=== PATIENT | male | born 1940 | race African-American/Black ===

== ENCOUNTER 2016-08-11 21:00 | Inpatient (IN) | payer OTHER, MEDICARE ==
[~2016-08-11] VITALS: Ht 182.9 cm; Wt 72.6 kg
[2016-08-11 21:00] VITALS: BP 142/86
--- NOTE | 2016-08-11 21:26 | Emergency Room Report ---
History of Present Illness General Chief Complaint: Dyspnea/Respdistress Source: Patient, EMS Present Illness HPI The patient presents with severe dyspnea. Apparently his initial oxygen saturation was 74% in the field. He was diaphoretic at that time also. They placed him on 100% nonrebreather mask and his O2 sats geovanny gradually to 100%. Paramedics said his lung sounds were clear. The patient states he's had worsening dyspnea over the last several days. Also has edema of his lower extremities is been fluctuating. He states that edema initially started after he had some operative procedure. He's not sure what the procedure was. He's had chills. Also when he coughs there is a little bit of blood which is old looking. No green or yellow phlegm. He denies h/o CHF. With family members who she claims that he has blood clots and had operations for that. He is on Xarelto at this time. Allergies: Coded Allergies: PENICILLINS (Unverified Allergy, Unknown, 08/12/16) Uncoded Allergies: PENICILLIN (Allergy, Unknown, 08/11/16) Patient History Past Medical History: see triage record Social History: Reports: smoking - prior Social History Narrative at home Reviewed Nursing Documentation: PMH: Agreed, PSxH: Agreed Nursing Documentation-PMH Past Medical History: No Stated History Review of Systems All Other Systems: negative except mentioned in HPI Physical Exam Vital Signs Date Time Temp Pulse Resp B/P Pulse Ox O2 Delivery O2 Flow Rate FiO2 08/11/16 20:50 110 20 142/86 95 Non-Rebreather 15.0 Sp02 EP Interpretation: reviewed, abnormal - low as interpreted by me on oxygen General Appearance: well appearing, no apparent distress, GCS 15, Chronically Ill Head: normocephalic Eyes: bilateral eye PERRL, bilateral eye conjunctivae pale, bilateral eye normal inspection ENT: moist mucus membranes Neck: supple Respiratory: no respiratory distress, no retraction, decreased breath sounds, rales - L base Cardiovascular #1: tachycardia, edema - bilat Cardiovascular #2: 2+ radial (R) Gastrointestinal: normal inspection, normal bowel sounds, non tender, no mass, non-distended Musculoskeletal: back normal, normal range of motion, no calf tenderness, other - clubbing Neurologic: alert, oriented x3, grossly normal Psychiatric: mood/affect normal Skin: normal inspection, warm/dry, other - clubbing Medical Decision Making Diagnostic Impression: Primary Impression: RLL pneumonia Qualified Codes: J18.1 - Lobar pneumonia, unspecified organism Additional Impression: UTI (urinary tract infection) Qualified Codes: N30.00 - Acute cystitis without hematuria ER Course The patient presents with hypoxia, tachycardia and peripheral edema. He's also had chills and mildly productive phlegm with some blood. Differential includes pneumonia, PE, acute myocardial infarction, bronchitis, and does have heart failure amongst others. Evaluation will be undertaken with labs, EKG and chest x-ray. With profound hypoxia there is concern for pulmonary embolus however the patient is on Xarelto and states he's been taking this. The patient has a low- grade fever and therefore pneumonia is more likely. Because of this fever and the lung findings antibiotics are begun. Addition to that IV fluid boluses instituted. Labs are significant for normal white count and elevated lactate. In addition the patient's chest x-ray has a right lower lobe infiltrate. Patient is admitted to telemetry to Dr. Olson. Laboratory Tests Test 08/11/16 21:10 08/12/16 00:40 White Blood Count 8.0 K/UL (4.8-10.8) Red Blood Count 4.21 M/UL (4.70-6.10) L Hemoglobin 12.6 G/DL (14.2-18.0) L Hematocrit 38.8 % (42.0-52.0) L Mean Corpuscular Volume 92 FL (80-99) Mean Corpuscular Hemoglobin 29.9 PG (27.0-31.0) Mean Corpuscular Hemoglobin Concent 32.4 G/DL (32.0-36.0) Red Cell Distribution Width 14.5 % (11.6-14.8) Platelet Count 145 K/UL (150-450) L Mean Platelet Volume 6.6 FL (6.5-10.1) Neutrophils (%) (Auto) % (45.0-75.0) Lymphocytes (%) (Auto) % (20.0-45.0) Monocytes (%) (Auto) % (1.0-10.0) Eosinophils (%) (Auto) % (0.0-3.0) Basophils (%) (Auto) % (0.0-2.0) Differential Total Cells Counted 100 Neutrophils % (Manual) 80 % (45-75) H Lymphocytes % (Manual) 5 % (20-45) L Monocytes % (Manual) 4 % (1-10) Eosinophils % (Manual) 0 % (0-3) Basophils % (Manual) 0 % (0-2) Band Neutrophils 11 % (0-8) H Platelet Estimate Adequate Platelet Morphology Normal Red Blood Cell Morphology Normal Prothrombin Time 12.2 SEC (9.30-11.50) H Prothrombin Time INR 1.2 (0.9-1.1) H PTT 35 SEC (23-33) H Urine Color Yellow Urine Appearance Slightly cloudy Urine pH 5 (4.5-8.0) Urine Specific [place] 1.025 (1.005-1.035) Urine Protein 3+ (NEGATIVE) H Urine Glucose (UA) Negative (NEGATIVE) Urine Ketones 2+ (NEGATIVE) H Urine Occult Blood 4+ (NEGATIVE) H Urine Nitrite Positive (NEGATIVE) H Urine Bilirubin Negative (NEGATIVE) Urine Urobilinogen Normal MG/DL (0.0-1.0) Urine Leukocyte Esterase 1+ (NEGATIVE) H Urine RBC 5-10 /HPF (0 - 0) H Urine WBC 15-20 /HPF (0 - 0) H Urine Squamous Epithelial Cells None /LPF (NONE/OCC) Urine Bacteria Moderate /HPF (NONE) H Sodium Level 138 mEQ/L (135-145) Potassium Level 3.9 mEQ/L (3.4-4.9) Chloride Level 97 mEQ/L (98-107) L Carbon Dioxide Level 20 mEQ/L (20-30) Anion Gap 21 (5-15) H Blood Urea Nitrogen 15 mg/dL (7-23) Creatinine 1.1 mg/dL (0.7-1.2) Estimate Glomerular Filtration Rate mL/min (>60) Glucose Level 148 mg/dL (74-106) H Lactic Acid Level 3.10 mmol/L (0.66-2.22) H Pending Calcium Level 8.4 mg/dL (8.6-10.2) L Total Bilirubin 0.9 mg/dL (0.0-1.2) Aspartate Amino Transferase (AST) 31 U/L (5-40) Alanine Aminotransferase (ALT) 19 U/L (3-41) Alkaline Phosphatase 93 U/L (40-129) Total Creatine Kinase 167 U/L (38-174) Troponin I < 0.30 ng/mL (<=0.30) Pro-B-Type Natriuretic Peptide 2004 pg/mL (0-125) H Total Protein 7.0 g/dL (6.6-8.7) Albumin 3.8 g/dL (3.5-5.2) Globulin 3.2 g/dL Albumin/Globulin Ratio 1.1 (1.0-2.7) EKG Diagnostic Results Rate: tachycardiac ST Segments: no acute changes Rhythm Strip Diag. Results EP Interpretation: yes Rhythm: other - ST 124, occ PVCs, NSSTTW changes Chest X-Ray Diagnostic Results EP Interpretation: Yes Findings: no effusion, no pneumothorax, other - RLL infiltrate Number of Views: 1 Last Vital Signs Date Time Temp Pulse Resp B/P Pulse Ox O2 Delivery O2 Flow Rate FiO2 08/13/16 11:52 98.1 76 18 151/99 98 Nasal Cannula 2.0 08/13/16 07:46 28 Status: improved Disposition: ADMITTED INPATIENT Condition: Serious Guille Dowd M.D. Aug 11, 2016 21:26
[2016-08-11] MEDS ORDERED: cefTRIAXone 1 GM in NS 55 ML IVPB ONE (21:30)
[2016-08-11] MEDS ORDERED: NS 1000ml 2,200 ML IVLG ONE (21:30)
[2016-08-11] MEDS ORDERED: Azithromycin 500 MG in D5W 275 ML IVPB ONE (21:30)
[2016-08-11 21:35] LABS: KETONES,URINE 2+ (NEGATIVE); LEUKOCYTE ESTERASE ,URINE 1+ (NEGATIVE); NITRITE,URINE POSITIVE (NEGATIVE); PH,URINE 5 (4.5-8.0); PROTEIN,URINE 3+ (NEGATIVE); UROBILINOGEN,URINE NORMAL MG/DL (0.0-1.0)
[2016-08-11 21:36] LABS: APPEARANCE,URINE SLIGHTLY CLOUDY
[2016-08-11 21:40] LABS: RED BLOOD COUNT 4.21 M/UL (4.70-6.10)
[2016-08-11 21:41] LABS: MEAN CORPUSCULAR HEMOGLOBIN 29.9 PG (27.0-31.0); MEAN CORPUSCULAR HGB CONC 32.4 G/DL (32.0-36.0); MEAN CORPUSCULAR VOLUME 92 FL (80-99); MEAN PLATELET VOLUME 6.6 FL (6.5-10.1); PLATELET COUNT 145 K/UL (150-450); RED CELL DISTRIBUTION WIDTH 14.5 % (11.6-14.8)
[2016-08-11 21:43] LABS: BACTERIA,URINE MODERATE /HPF; WBC,URINE 15-20 /HPF (0 - 0)
[2016-08-11 22:01] LABS: INR 1.2 (0.9-1.1); PROTHROMBIN TIME 12.2 SEC (9.30-11.50)
[2016-08-11 22:02] LABS: TROPONIN I < 0.30 ng/mL (<=0.30)
[2016-08-11 22:05] LABS: ALANINE AMINOTRANSFERASE 19 U/L (3-41); ALBUMIN/GLOBULIN RATIO 1.1 (1.0-2.7); ASPARTATE AMINO TRANSFERASE 31 U/L (5-40); CALCIUM 8.4 mg/dL (8.6-10.2); CARBON DIOXIDE 20 mEQ/L (20-30); CREATININE 1.1 mg/dL (0.7-1.2); HEMOLYSIS 32
[2016-08-11 22:06] LABS: ANION GAP 21 (5-15); CHLORIDE 97 mEQ/L (98-107); POTASSIUM 3.9 mEQ/L (3.4-4.9); SODIUM 138 mEQ/L (135-145)
[2016-08-11 22:07] LABS: REFLEX LACTIC ACID YES OR NO YES
[2016-08-11] MEDS ORDERED: XARELTO10 MG ORAL (22:17)
[2016-08-11] MEDS ORDERED: Azithromycin Inj IV ONE (22:25)
[2016-08-11 22:30] LABS: BAND NEUTROPHILS % (MANUAL) 11 % (0-8); BASOPHILS % (MANUAL) 0 % (0-2); EOSINOPHILS % (MANUAL) 0 % (0-3); LYMPHOCYTES % (MANUAL) 5 % (20-45); NEUTROPHILS % (MANUAL) 80 % (45-75); PLATELET ESTIMATE ADEQUATE; PLATELET MORPHOLOGY NORMAL; TOTAL CELLS COUNTED 100
[2016-08-11 23:00] VITALS: BP 121/86
[2016-08-12 01:00] VITALS: BP 109/79
[2016-08-12] MEDS ORDERED: DuoNeb 0.5-3(2.5)mg/3ml neb HHN PRN (03:00)
[2016-08-12 03:16] VITALS: BP 108/74
[2016-08-12 05:16] VITALS: BP 131/82
[2016-08-12 06:06] LABS: ALANINE AMINOTRANSFERASE 36 U/L (3-41); ANION GAP 17 (5-15); ASPARTATE AMINO TRANSFERASE 64 U/L (5-40); CARBON DIOXIDE 22 mEQ/L (20-30); CHLORIDE 99 mEQ/L (98-107); CHOLESTEROL 117 mg/dL (< 200); CHOLESTEROL/HDL RATIO 2.4 (3.3-4.4); CREATININE 0.9 mg/dL (0.7-1.2); HEMOLYSIS 26; LDL CHOLESTEROL (CALC.) 57 mg/dL (60-99); POTASSIUM 4.2 mEQ/L (3.4-4.9); SODIUM 138 mEQ/L (135-145); TOTAL PROTEIN 6.5 g/dL (6.6-8.7)
[2016-08-12 08:00] VITALS: BP 138/78
[2016-08-12] MEDS ORDERED: cefTRIAXone 1 GM in NS 55 ML IVPB SCH (09:00)
--- NOTE | 2016-08-12 09:05 | Consultation ---
History of Present Illness General Date patient seen: Aug 12, 2016 Time patient seen: 08:00 Chief Complaint: Dyspnea/Respdistress Referring physician: dr Olson Reason for Consultation: PNA Present Illness HPI The patient presented with severe dyspnea. Initial oxygen saturation was 74% in the field. He was diaphoretic at that time as well. Patient was placed on 100% nonrebreather mask and pulse oximetry gradually improved to 100%. Patient reported worsening dyspnea over the last several days. Reported fever and chills reported cough, mainly dry, difficult to expectorate, no hemoptysis, no wheezing , With difficultites expectoration, streaks of blood last week, not now no weight loss, no night sweats, no hx of TB hx of smoking 1 pk/day, quit 10 yrs ago has inhalers ay home, not using no oxygen at home hx of DVT RLE, on Xarelto, had surgeries for clot in his leg, not sure what kind of surgery reported edema of his lower extremities, fluctuating. Edema initially started after he had some operative procedure. He's not sure what the procedure was. workup in ED revealed no leukocytosis, low grade fever initially , elevated lactic acid , tachycardia UA with evidence of UTI CXR with Right basilar interstitial disease: acute vs chronic. ECG with ST, no ischemic changes Allergies: Coded Allergies: PENICILLINS (Unverified Allergy, Unknown, 08/12/16) Uncoded Allergies: PENICILLIN (Allergy, Unknown, 08/11/16) Medication History Scheduled Rivaroxaban (Xarelto*), 15 ORAL BID, (Reported) Patient History History Provided By: Patient Healthcare decision maker Resuscitation status Advanced Directive on File Past Medical/Surgical History Past Medical/Surgical History: (1) COPD (chronic obstructive pulmonary disease) Review of Systems Constitutional: Reports: fever, weakness Eye: Reports: no symptoms ENT: Reports: no symptoms Respiratory: Reports: see HPI Cardiovascular: Reports: no symptoms Gastrointestinal: Reports: no symptoms Genitourinary: Reports: no symptoms Musculoskeletal: Reports: no symptoms Skin: Reports: no symptoms Psychiatric: Reports: no symptoms Neurological: Reports: no symptoms Endocrine: Reports: no symptoms Hematologic/Lymphatic: Reports: no symptoms Physical Exam General Appearance: alert - A/A/O x 3 AA male in NAD Lines, tubes and drains: peripheral HEENT: normocephalic, atraumatic, anicteric, mucous membranes moist, PERRL Neck: non-tender, supple Respiratory/Chest: lungs clear - with decreased air entry , no respiratory distress, no accessory muscle use Cardiovascular/Chest: regular rhythm, no JVD, tachycardia - 120th, ST on tele Abdomen: normal bowel sounds, non tender, soft Extremities: normal range of motion, non-tender, no calf tenderness, normal capillary refill, other - trace edema BLE Neurologic: tobacco cutter II-XII grossly normal, no motor/sensory deficits, alert, oriented x 3, responsive Musculoskeletal: normal muscle bulk Last 24 Hour Vital Signs Date Time Temp Pulse Resp B/P Pulse Ox O2 Delivery O2 Flow Rate FiO2 08/12/16 07:28 97.3 62 17 126/87 100 Nasal Cannula 2.0 08/12/16 05:16 97.3 64 17 131/82 99 Nasal Cannula 2.0 08/12/16 03:16 98.6 68 21 108/74 95 Nasal Cannula 2.0 08/12/16 01:00 98.7 78 17 109/79 95 Nasal Cannula 2.0 08/11/16 23:00 98.3 88 30 121/86 100 Non-Rebreather 15.0 08/11/16 22:50 98.3 08/11/16 21:00 110 20 Non-Rebreather 15.0 08/11/16 21:00 100.1 110 20 142/86 100 Non-Rebreather 15.0 08/11/16 20:50 110 20 142/86 95 Non-Rebreather 15.0 Intake and Output 08/11/16 08/12/16 18:59 06:59 Intake Total 2500 ml Balance 2500 ml Intake IV Total 2500 ml # Voids 1 Laboratory Tests Test 08/11/16 21:10 08/12/16 00:40 08/12/16 05:22 White Blood Count 8.0 K/UL (4.8-10.8) Red Blood Count 4.21 M/UL (4.70-6.10) L Hemoglobin 12.6 G/DL (14.2-18.0) L Hematocrit 38.8 % (42.0-52.0) L Mean Corpuscular Volume 92 FL (80-99) Mean Corpuscular Hemoglobin 29.9 PG (27.0-31.0) Mean Corpuscular Hemoglobin Concent 32.4 G/DL (32.0-36.0) Red Cell Distribution Width 14.5 % (11.6-14.8) Platelet Count 145 K/UL (150-450) L Mean Platelet Volume 6.6 FL (6.5-10.1) Neutrophils (%) (Auto) % (45.0-75.0) Lymphocytes (%) (Auto) % (20.0-45.0) Monocytes (%) (Auto) % (1.0-10.0) Eosinophils (%) (Auto) % (0.0-3.0) Basophils (%) (Auto) % (0.0-2.0) Differential Total Cells Counted 100 Neutrophils % (Manual) 80 % (45-75) H Lymphocytes % (Manual) 5 % (20-45) L Monocytes % (Manual) 4 % (1-10) Eosinophils % (Manual) 0 % (0-3) Basophils % (Manual) 0 % (0-2) Band Neutrophils 11 % (0-8) H Platelet Estimate Adequate Platelet Morphology Normal Red Blood Cell Morphology Normal Prothrombin Time 12.2 SEC (9.30-11.50) H Prothromb Time International Ratio 1.2 (0.9-1.1) H Activated Partial Thromboplast Time 35 SEC (23-33) H Urine Color Yellow Urine Appearance Slightly cloudy Urine pH 5 (4.5-8.0) Urine Specific [place] 1.025 (1.005-1.035) Urine Protein 3+ (NEGATIVE) H Urine Glucose (UA) Negative (NEGATIVE) Urine Ketones 2+ (NEGATIVE) H Urine Occult Blood 4+ (NEGATIVE) H Urine Nitrite Positive (NEGATIVE) H Urine Bilirubin Negative (NEGATIVE) Urine Urobilinogen Normal MG/DL (0.0-1.0) Urine Leukocyte Esterase 1+ (NEGATIVE) H Urine RBC 5-10 /HPF (0 - 0) H Urine WBC 15-20 /HPF (0 - 0) H Urine Squamous Epithelial Cells None /LPF (NONE/OCC) Urine Bacteria Moderate /HPF (NONE) H Sodium Level 138 mEQ/L (135-145) 138 mEQ/L (135-145) Potassium Level 3.9 mEQ/L (3.4-4.9) 4.2 mEQ/L (3.4-4.9) Chloride Level 97 mEQ/L (98-107) L 99 mEQ/L (98-107) Carbon Dioxide Level 20 mEQ/L (20-30) 22 mEQ/L (20-30) Anion Gap 21 (5-15) H 17 (5-15) H Blood Urea Nitrogen 15 mg/dL (7-23) 14 mg/dL (7-23) Creatinine 1.1 mg/dL (0.7-1.2) 0.9 mg/dL (0.7-1.2) Estimat Glomerular Filtration Rate mL/min (>60) mL/min (>60) Glucose Level 148 mg/dL (74-106) H 118 mg/dL (74-106) H Lactic Acid Level 3.10 mmol/L (0.66-2.22) H 1.00 mmol/L (0.66-2.22) Calcium Level 8.4 mg/dL (8.6-10.2) L 8.0 mg/dL (8.6-10.2) L Total Bilirubin 0.9 mg/dL (0.0-1.2) 0.5 mg/dL (0.0-1.2) Aspartate Amino Transf (AST/SGOT) 31 U/L (5-40) 64 U/L (5-40) H Alanine Aminotransferase (ALT/SGPT) 19 U/L (3-41) 36 U/L (3-41) Alkaline Phosphatase 93 U/L (40-129) 106 U/L (40-129) Total Creatine Kinase 167 U/L (38-174) Troponin I < 0.30 ng/mL (<=0.30) Pro-B-Type Natriuretic Peptide 2004 pg/mL (0-125) H Total Protein 7.0 g/dL (6.6-8.7) 6.5 g/dL (6.6-8.7) L Albumin 3.8 g/dL (3.5-5.2) 3.3 g/dL (3.5-5.2) L Globulin 3.2 g/dL 3.2 g/dL Albumin/Globulin Ratio 1.1 (1.0-2.7) 1.0 (1.0-2.7) Hemoglobin A1c 5.8 % (< 6.0) Triglycerides Level 55 mg/dL (< 150) Cholesterol Level 117 mg/dL (< 200) LDL Cholesterol 57 mg/dL (60-99) L HDL Cholesterol 49 mg/dL (> 60) Cholesterol/HDL Ratio 2.4 (3.3-4.4) L Height (Feet): 6 Height (Inches): 0.00 Weight (Pounds): 160 Medications Current Medications Medications (Trade) Dose Ordered Sig/Barber Route PRN Reason Start Time Stop Time Status Last Admin Dose Admin Acetaminophen (Tylenol) 650 mg Q4H PRN ORAL fever 08/12/16 03:00 09/11/16 02:59 Albuterol/ Ipratropium (DuoNeb 0.5-3(2.5)mg/3ml) 3 ml Q4HR PRN HHN Shortness of Breath 08/12/16 03:00 08/17/16 02:59 Dextrose (Dextrose 50%) STAT PRN IV Hypoglycemia 08/12/16 03:00 09/11/16 02:59 Levofloxacin (Levaquin) 100 ml @ 100 mls/hr Q24H IVPB 08/12/16 10:00 08/19/16 09:59 Rivaroxaban 15 mg 15 mg BID ORAL 08/12/16 09:00 09/11/16 08:59 Assessment/Plan Assessment/Plan ASSESSMENT SOB severe hypoxemia-improved possible sepsis lactic acidosis acute bronchitis possible PNA COPD UTI Hx of DVT RLE PLAN OF CARE tele o2 HHN sputum cx empiric abx fup with cx fup with CXR at this time no evidence of OPD exacerbation continue Xarelto with hypoxemia and tachy concern for PE, but on Xarelto stress ECHO as ordered by PMD. troponin negative ECG with ST no ischemic changes GI prophylaxes breastfeeding peer counselor to continue abstinence from smoking encourage to gentry inhalers at home case discussed and evaluated by supervising physician Rolando Gorman)Linda NP Aug 12, 2016 09:05
--- NOTE | 2016-08-12 09:33 | Diagnostic Imaging Report ---
Indication: SOB Technique: XRAY CHEST 1 V Comparison:None Findings: The heart is normal in size. Lungs are hyperexpanded. Interstitial disease is noted in the right base. Remainder the lungs are clear. No pleural fluid. Degenerative changes noted in the right acromioclavicular joint. Impression: COPD. Right basilar interstitial disease. This may be acute or chronic. Degenerative change of the right acromioclavicular joint.
[2016-08-12] MEDS: Xarelto 15mg tab ORAL SCH ×2 (09:35→17:05)
--- NOTE | 2016-08-12 10:08 | History & Physical ---
History and Physical History & Physicial seen and examined. Dict completed Antonio Olson MD Aug 12, 2016 10:08
--- NOTE | 2016-08-12 10:10 | General Progress Note ---
Assessment/Plan Status: stable Assessment/Plan 1- Sepsis 2- CAP 3- UTI 4- Respiratory failure, 5- Anemia 6- Gi-DVT prophylaxia Plan: Pulmonary,cardilogy and ID consulted iron panel PSA Subjective ROS Limited/Unobtainable: No Constitutional: Reports: no symptoms HEENT: Reports: no symptoms Cardiovascular: Reports: no symptoms Respiratory: Reports: no symptoms Allergies: Coded Allergies: PENICILLINS (Unverified Allergy, Unknown, 08/12/16) Uncoded Allergies: PENICILLIN (Allergy, Unknown, 08/11/16) Objective Last 24 Hour Vital Signs Date Time Temp Pulse Resp B/P Pulse Ox O2 Delivery O2 Flow Rate FiO2 08/12/16 08:00 96.8 62 17 138/78 97 Room Air 66 08/12/16 07:28 97.3 62 17 126/87 100 Nasal Cannula 2.0 08/12/16 05:16 97.3 64 17 131/82 99 Nasal Cannula 2.0 08/12/16 03:16 98.6 68 21 108/74 95 Nasal Cannula 2.0 08/12/16 01:00 98.7 78 17 109/79 95 Nasal Cannula 2.0 08/11/16 23:00 98.3 88 30 121/86 100 Non-Rebreather 15.0 08/11/16 22:50 98.3 08/11/16 21:00 110 20 Non-Rebreather 15.0 08/11/16 21:00 100.1 110 20 142/86 100 Non-Rebreather 15.0 08/11/16 20:50 110 20 142/86 95 Non-Rebreather 15.0 Intake and Output 08/11/16 08/12/16 19:00 07:00 Intake Total 2500 ml Balance 2500 ml Intake IV Total 2500 ml # Voids 1 Laboratory Tests 08/11/16 21:10: White Blood Count 8.0, Red Blood Count 4.21L, Hemoglobin 12.6L, Hematocrit 38.8L , Mean Corpuscular Volume 92, Mean Corpuscular Hemoglobin 29.9, Mean Corpuscular Hemoglobin Concent 32.4, Red Cell Distribution Width 14.5, Platelet Count 145L, Mean Platelet Volume 6.6, Neutrophils (%) (Auto) , Lymphocytes (%) ( Auto) , Monocytes (%) (Auto) , Eosinophils (%) (Auto) , Basophils (%) (Auto) , Differential Total Cells Counted 100, Neutrophils % (Manual) 80H, Lymphocytes % (Manual) 5L, Monocytes % (Manual) 4, Eosinophils % (Manual) 0, Basophils % ( Manual) 0, Band Neutrophils 11H, Platelet Estimate Adequate, Platelet Morphology Normal, Red Blood Cell Morphology Normal, Prothrombin Time 12.2H, Prothromb Time International Ratio 1.2H, Activated Partial Thromboplast Time 35H , Urine Color Yellow, Urine Appearance Slightly cloudy, Urine pH 5, Urine Specific [place] 1.025, Urine Protein 3+H, Urine Glucose (UA) Negative, Urine Ketones 2+H, Urine Occult Blood 4+H, Urine Nitrite PositiveH, Urine Bilirubin Negative, Urine Urobilinogen Normal, Urine Leukocyte Esterase 1+H, Urine RBC 5- 10H, Urine WBC 15-20H, Urine Squamous Epithelial Cells None, Urine Bacteria ModerateH, Sodium Level 138, Potassium Level 3.9, Chloride Level 97L, Carbon Dioxide Level 20, Anion Gap 21H, Blood Urea Nitrogen 15, Creatinine 1.1, Estimat Glomerular Filtration Rate , Glucose Level 148H, Lactic Acid Level 3.10H , Calcium Level 8.4L, Total Bilirubin 0.9, Aspartate Amino Transf (AST/SGOT) 31 , Alanine Aminotransferase (ALT/SGPT) 19, Alkaline Phosphatase 93, Total Creatine Kinase 167, Troponin I < 0.30, Pro-B-Type Natriuretic Peptide 2004H, Total Protein 7.0, Albumin 3.8, Globulin 3.2, Albumin/Globulin Ratio 1.1 08/12/16 00:40: Lactic Acid Level 1.00 08/12/16 05:22: Sodium Level 138, Potassium Level 4.2, Chloride Level 99, Carbon Dioxide Level 22, Anion Gap 17H, Blood Urea Nitrogen 14, Creatinine 0.9, Estimat Glomerular Filtration Rate , Glucose Level 118H, Calcium Level 8.0L, Total Bilirubin 0.5, Aspartate Amino Transf (AST/SGOT) 64H, Alanine Aminotransferase (ALT/SGPT) 36, Alkaline Phosphatase 106, Total Protein 6.5L, Albumin 3.3L, Globulin 3.2, Albumin/Globulin Ratio 1.0, Hemoglobin A1c 5.8, Triglycerides Level 55, Cholesterol Level 117, LDL Cholesterol 57L, HDL Cholesterol 49, Cholesterol/HDL Ratio 2.4L Height (Feet): 6 Height (Inches): 0.00 Weight (Pounds): 160 General Appearance: no apparent distress EENT: PERRL/EOMI Neck: supple Cardiovascular: normal rate Respiratory/Chest: lungs clear Abdomen: soft Extremities: non-tender Neurologic: oriented x 3 Antonio Olson MD Aug 12, 2016 10:10
[2016-08-12 20:41] VITALS: BP 148/92
--- NOTE | 2016-08-12 21:38 | History and Physical Report ---
DATE OF ADMISSION: 08/11/2016 SOURCE OF INFORMATION: Patient and EMR. HISTORY OF PRESENT ILLNESS: The patient is a 76-year-old male. He presented with diffuse weakness and feeling cold associated with a cough in the last couple of days. COURSE OF ER ASSESSMENT: Initially, the patient showed low-grade fever, tachycardia, and low-level of oxygen. Initial chest x-ray showed right basilar interstitial disease, otherwise unremarkable. Initial urinalysis showed UTI. The patient was admitted for additional evaluation. HOME MEDICATIONS: Xarelto 10/20 mg b.i.d. SOCIAL HISTORY: Positive for prior history of tobacco smoking at least 15 pack per year. Currently reported he is not smoking. Denies history of illicit drug abuse. The patient reported has two living daughters. He has one child. FAMILY HISTORY: Reviewed noncontributory. ALLERGIES: Penicillin. PHYSICAL EXAMINATION: VITAL SIGNS: Blood pressure 140/80, temperature 100.1 degrees, pulse rate 110, respiratory rate 15-20, and pulse oximetry 95% on nonrebreather mask. HEAD AND NECK: Atraumatic and normocephalic. CHEST: Diffuse bronchial breathing sounds. HEART: S1, S2. Regular rate and rhythm. Tachycardic. MUSCULOSKELETAL: No gross focal motor deficit. EXTREMITIES: Decreased range of motion in all the extremities. NEUROLOGIC: The patient is awake, anxious, and depressed mood. HOSPITAL MEDICATIONS: Reviewed and reconciled in chart including Xarelto 15 mg p.o. b.i.d., and Levaquin IV. LABORATORY AND DIAGNOSTIC DATA: Lab results dated 08/12/2016, showed 3+ protein, 15-20 WBCs, and moderate bacteriuria. Sodium 138, potassium 4.2, BUN 17, and creatinine 0.9. Lactic acid is 3.1. WBC 8, hemoglobin 12.6, and platelets 145,000. INR 1.2. AST 64. ASSESSMENT: 1. Sepsis. 2. Community-acquired pneumonia. 3. Hypoxemic respiratory failure, stable. 4. Anemia. 5. Urinary tract infection. PLAN OF CARE: Continue the current antibiotic regimen. I will check the PSA and iron panel. Cardiology Dr. Doyle and Pulmonary, Dr. Marquez has been notified and consulted. Antonio Olson M.D. DR: Obed JOB#: [id number] CC: MARTÍNEZ
[2016-08-13] VITALS (7 sets, daily range): BP systolic 139–159; BP diastolic 91–104
[2016-08-13] MEDS: Xarelto 15mg tab ORAL SCH (08:52)
[2016-08-13] MEDS ORDERED: Tubing IV Secondary IV ONE (09:39)
[2016-08-13] MEDS ORDERED: NS 275ml ONE (09:39)
--- NOTE | 2016-08-13 11:24 | General Progress Note ---
Assessment/Plan Status: stable Assessment/Plan 1. Sepsis. 2. Community-acquired pneumonia. 3. Hypoxemic respiratory failure, stable. 4. Anemia. 5. Urinary tract infection. Plan: Pulmonary, notes reviewed iron panel PSA abdominal us ordered Subjective ROS Limited/Unobtainable: Yes Constitutional: Reports: no symptoms HEENT: Reports: no symptoms Cardiovascular: Reports: no symptoms Respiratory: Reports: no symptoms Neurologic/Psychiatric: Reports: no symptoms Allergies: Coded Allergies: PENICILLINS (Unverified Allergy, Unknown, 08/12/16) Uncoded Allergies: PENICILLIN (Allergy, Unknown, 08/11/16) Objective Last 24 Hour Vital Signs Date Time Temp Pulse Resp B/P Pulse Ox O2 Delivery O2 Flow Rate FiO2 08/13/16 08:01 97.7 93 18 159/91 99 Nasal Cannula 2.0 08/13/16 07:46 96 Nasal Cannula 2.0 28 08/13/16 07:46 Nasal Cannula 2.0 28 08/13/16 04:30 98.2 74 20 140/94 98 Room Air 08/13/16 04:00 74 08/13/16 00:50 140/92 08/13/16 00:39 99.0 80 20 144/104 98 Room Air 08/13/16 00:00 69 08/12/16 20:41 97.0 88 20 148/92 94 Room Air 08/12/16 20:00 86 08/12/16 19:15 Nasal Cannula 2.0 28 08/12/16 19:15 95 Nasal Cannula 2.0 28 08/12/16 16:45 82 20 99 Nasal Cannula 2.0 28 08/12/16 16:34 79 18 96 Nasal Cannula 2.0 28 08/12/16 16:34 79 20 Non-Rebreather 2.0 28 08/12/16 16:34 Nasal Cannula 2.0 28 08/12/16 16:34 96 Nasal Cannula 2.0 28 08/12/16 16:00 81 08/12/16 12:00 71 Intake and Output 08/12/16 08/13/16 19:00 07:00 Intake Total 100 ml Output Total 525 ml Balance 100 ml -525 ml IV Total 100 ml Output Urine Total 525 ml Height (Feet): 6 Height (Inches): 0.00 Weight (Pounds): 160 General Appearance: no apparent distress EENT: PERRL/EOMI Neck: supple Cardiovascular: normal rate Respiratory/Chest: rhonchi - bilaterally Abdomen: soft Extremities: non-tender Neurologic: senior accountant II-XII grossly normal Antonio Olson MD Aug 13, 2016 11:24
--- NOTE | 2016-08-13 16:25 | Diagnostic Imaging Report ---
Indication: PAIN Technique: Hernández-scale and duplex images of the upper abdomen were obtained Comparison: None Findings: . Gallbladder is unremarkable, without stones, wall thickening, nor pericholecystic fluid. Sonographic Hale's sign is negative. Common bile duct measures 6 mm in diameter. No intrahepatic biliary ductal dilatation. Liver demonstrates normal echogenicity, no focal abnormality. Portal vein and hepatic veins are patent.. Pancreas is unremarkable. Spleen demonstrates multiple calcifications.. Left kidney measures 11 cm in length. Right kidney measures 12.2 cm length. Both kidneys demonstrate normal echogenicity. There is no hydronephrosis. There are small right renal cysts incidentally noted.. . Abdominal aorta is ectatic, measuring 2.6 cm maximal diameter. The left common iliac artery is ectatic, measuring 18 mm, and the right common iliac artery is borderline aneurysmal, measuring 23 mm diameter.. 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 Consider further evaluation with CT if clinically indicated Negative for gallstones or dilated ducts Splenic calcifications, likely on the basis of old granulomatous disease
--- NOTE | 2016-08-13 17:00 | Pulmonology Progress Note ---
Assessment/Plan Problems: (1) Gram-negative bacteremia (2) Hypoxia (3) RLL pneumonia (4) UTI (urinary tract infection) (5) COPD (chronic obstructive pulmonary disease) Assessment/Plan IV antibiotics check sensitiy of GNR respiratory treatment check sputum Subjective ROS Limited/Unobtainable: No Interval Events: less short of breath Allergies: Coded Allergies: PENICILLINS (Unverified Allergy, Unknown, 08/12/16) Uncoded Allergies: PENICILLIN (Allergy, Unknown, 08/11/16) Objective Last 24 Hour Vital Signs Date Time Temp Pulse Resp B/P Pulse Ox O2 Delivery O2 Flow Rate FiO2 08/13/16 15:34 98.4 78 18 139/99 100 Room Air 08/13/16 11:52 98.1 76 18 151/99 98 Nasal Cannula 2.0 08/13/16 08:01 97.7 93 18 159/91 99 Nasal Cannula 2.0 08/13/16 08:00 74 08/13/16 07:46 96 Nasal Cannula 2.0 28 08/13/16 07:46 Nasal Cannula 2.0 28 08/13/16 04:30 98.2 74 20 140/94 98 Room Air 08/13/16 04:00 74 08/13/16 00:50 140/92 08/13/16 00:39 99.0 80 20 144/104 98 Room Air 08/13/16 00:00 69 08/12/16 20:41 97.0 88 20 148/92 94 Room Air 08/12/16 20:00 86 08/12/16 19:15 Nasal Cannula 2.0 28 08/12/16 19:15 95 Nasal Cannula 2.0 28 Intake and Output 08/12/16 08/13/16 19:00 07:00 Intake Total 100 ml Output Total 525 ml Balance 100 ml -525 ml IV Total 100 ml Output Urine Total 525 ml General Appearance: cachetic HEENT: normocephalic, atraumatic Respiratory/Chest: chest wall non-tender, crackles/rales Cardiovascular: normal peripheral pulses Abdomen: normal bowel sounds, soft, non tender Extremities: no cyanosis Skin: no rash Microbiology Date/Time Source Procedure Growth Status 08/11/16 21:10 Blood Blood Culture - Preliminary Gram Negative Bacillus 1 Resulted 08/11/16 20:47 Blood Blood Culture - Preliminary Gram Negative Bacillus 1 Resulted 08/12/16 17:00 Sputum Gram Stain - Final Resulted 08/12/16 17:00 Sputum Sputum Culture Pending Resulted 08/11/16 21:10 Urine,Clean Catch Urine Culture - Preliminary Gram Negative Bacillus 1 Resulted Current Medications Medications (Trade) Dose Ordered Sig/Barber Route PRN Reason Start Time Stop Time Status Last Admin Dose Admin Acetaminophen (Tylenol) 650 mg Q4H PRN ORAL fever 08/12/16 03:00 09/11/16 02:59 Albuterol/ Ipratropium (DuoNeb 0.5-3(2.5)mg/3ml) 3 ml Q4HR PRN HHN Shortness of Breath 08/12/16 03:00 08/17/16 02:59 08/12/16 16:34 Dextrose STAT PRN IV Hypoglycemia 08/12/16 03:00 09/11/16 02:59 Levofloxacin (Levaquin) 100 ml @ 100 mls/hr Q24H IVPB 08/12/16 10:00 08/19/16 09:59 08/13/16 08:52 Ranitidine HCl (Zantac) 150 mg BEDTIME ORAL 08/12/16 21:00 09/11/16 20:59 08/12/16 21:43 Rivaroxaban (Xarelto) 20 mg DAILY ORAL 08/14/16 09:00 09/13/16 08:59 BAYRON HADDAD Aug 13, 2016 17:00
[2016-08-14] VITALS: BP 157/101
[2016-08-14 06:35] VITALS: BP 150/82
[2016-08-14 08:00] VITALS: BP 160/100
[2016-08-14 08:03] LABS: MEAN CORPUSCULAR HEMOGLOBIN 28.5 PG (27.0-31.0); MEAN CORPUSCULAR VOLUME 89 FL (80-99); MEAN PLATELET VOLUME 7.3 FL (6.5-10.1); PLATELET COUNT 225 K/UL (150-450); RED BLOOD COUNT 4.63 M/UL (4.70-6.10); RED CELL DISTRIBUTION WIDTH 14.5 % (11.6-14.8)
[2016-08-14] MEDS: Xarelto 10mg tab ORAL SCH (08:13)
[2016-08-14] MEDS: Levofloxacin 500mg tab ORAL SCH (08:13)
[2016-08-14 08:27] LABS: ALANINE AMINOTRANSFERASE 42 U/L (3-41); ALBUMIN/GLOBULIN RATIO 0.9 (1.0-2.7); ANION GAP 15 (5-15); ASPARTATE AMINO TRANSFERASE 41 U/L (5-40); CARBON DIOXIDE 25 mEQ/L (20-30); CHLORIDE 95 mEQ/L (98-107); POTASSIUM 3.7 mEQ/L (3.4-4.9); SODIUM 135 mEQ/L (135-145); TOTAL PROTEIN 7.4 g/dL (6.6-8.7)
[2016-08-14 08:28] LABS: HEMOLYSIS 2
[2016-08-14] MEDS ORDERED: Xarelto 10mg tab ORAL SCH (09:00)
[2016-08-14] MEDS ORDERED: DuoNeb 0.5-3(2.5)mg/3ml neb HHN PRN (09:00)
[2016-08-14] MEDS ORDERED: Levofloxacin 500mg tab ORAL SCH (09:00)
--- NOTE | 2016-08-14 09:57 | General Progress Note ---
Assessment/Plan Status: stable Assessment/Plan 1. Sepsis. 2. Community-acquired pneumonia. 3. Hypoxemic respiratory failure, stable. 4. Anemia. 5. Urinary tract infection, Gram negative 6. Gram Negative bactremia Plan: Pulmonary, notes reviewed iron panel PSA abdominal us ordered ID consulted, continue with current antibiotic Subjective ROS Limited/Unobtainable: No Constitutional: Reports: no symptoms Cardiovascular: Reports: no symptoms Respiratory: Reports: no symptoms Allergies: Coded Allergies: PENICILLINS (Unverified Allergy, Unknown, 08/12/16) Uncoded Allergies: PENICILLIN (Allergy, Unknown, 08/11/16) Objective Last 24 Hour Vital Signs Date Time Temp Pulse Resp B/P Pulse Ox O2 Delivery O2 Flow Rate FiO2 08/14/16 08:00 98.6 76 16 160/100 99 Room Air 08/14/16 07:57 Nasal Cannula 2.0 28 08/14/16 07:55 95 Nasal Cannula 2.0 28 08/14/16 06:35 97.7 82 16 150/82 99 Room Air 08/14/16 00:00 97.8 98 22 157/101 91 Nasal Cannula 2.0 08/13/16 20:00 98.8 91 19 140/92 91 Nasal Cannula 2.0 08/13/16 20:00 81 08/13/16 19:49 95 Nasal Cannula 2.0 28 08/13/16 19:49 Nasal Cannula 2.0 28 08/13/16 16:00 81 08/13/16 15:34 98.4 78 18 139/99 100 Room Air 08/13/16 12:00 67 08/13/16 11:52 98.1 76 18 151/99 98 Nasal Cannula 2.0 Intake and Output 08/13/16 08/14/16 19:00 07:00 Intake Total 120 ml 300 ml Balance 120 ml 300 ml Intake Oral 120 ml 300 ml # Voids 2 1 Laboratory Tests 08/14/16 07:30: White Blood Count 7.0, Red Blood Count 4.63L, Hemoglobin 13.2L, Hematocrit 41.1L , Mean Corpuscular Volume 89, Mean Corpuscular Hemoglobin 28.5, Mean Corpuscular Hemoglobin Concent 32.0, Red Cell Distribution Width 14.5, Platelet Count 225, Mean Platelet Volume 7.3, Neutrophils (%) (Auto) , Lymphocytes (%) ( Auto) , Monocytes (%) (Auto) , Eosinophils (%) (Auto) , Basophils (%) (Auto) , Neutrophils % (Manual) [Pending], Lymphocytes % (Manual) [Pending], Platelet Estimate [Pending], Platelet Morphology [Pending], Sodium Level 135, Potassium Level 3.7, Chloride Level 95L, Carbon Dioxide Level 25, Anion Gap 15, Blood Urea Nitrogen 12, Creatinine 1.0, Estimat Glomerular Filtration Rate , Glucose Level 97, Calcium Level 9.0, Total Bilirubin 0.3, Aspartate Amino Transf (AST/ SGOT) 41H, Alanine Aminotransferase (ALT/SGPT) 42H, Alkaline Phosphatase 108, Total Protein 7.4, Albumin 3.6, Globulin 3.8, Albumin/Globulin Ratio 0.9L Height (Feet): 6 Height (Inches): 0.00 Weight (Pounds): 160 General Appearance: no apparent distress EENT: PERRL/EOMI Neck: supple Cardiovascular: normal rate Respiratory/Chest: lungs clear Abdomen: soft Extremities: non-tender Neurologic: oriented x 3 Antonio Olson MD Aug 14, 2016 09:57
[2016-08-14 11:14] LABS: BAND NEUTROPHILS % (MANUAL) 0 % (0-8); BASOPHILS % (MANUAL) 0 % (0-2); EOSINOPHILS % (MANUAL) 1 % (0-3); LYMPHOCYTES % (MANUAL) 22 % (20-45); NEUTROPHILS % (MANUAL) 68 % (45-75); PLATELET ESTIMATE ADEQUATE; PLATELET MORPHOLOGY NORMAL; TOTAL CELLS COUNTED 100
[2016-08-14 12:45] VITALS: BP 148/99
[2016-08-14 16:21] VITALS: BP 136/89
--- NOTE | 2016-08-14 19:28 | Pulmonology Progress Note ---
Assessment/Plan Problems: (1) Gram-negative bacteremia (2) Hypoxia (3) RLL pneumonia (4) UTI (urinary tract infection) (5) COPD (chronic obstructive pulmonary disease) Assessment/Plan IV antibiotics check sensitiy of GNR, pansensitive respiratory treatment check sputum ID consult pending Subjective ROS Limited/Unobtainable: No Interval Events: continues to improve Allergies: Coded Allergies: PENICILLINS (Unverified Allergy, Unknown, 08/12/16) Uncoded Allergies: PENICILLIN (Allergy, Unknown, 08/11/16) Objective Last 24 Hour Vital Signs Date Time Temp Pulse Resp B/P Pulse Ox O2 Delivery O2 Flow Rate FiO2 08/14/16 16:21 98.1 96 20 136/89 97 Room Air 08/14/16 12:45 97.9 79 20 148/99 97 Room Air 08/14/16 08:00 98.6 76 16 160/100 99 Room Air 08/14/16 07:57 Nasal Cannula 2.0 28 08/14/16 07:55 95 Nasal Cannula 2.0 28 08/14/16 06:35 97.7 82 16 150/82 99 Room Air 08/14/16 00:00 97.8 98 22 157/101 91 Nasal Cannula 2.0 08/13/16 20:00 98.8 91 19 140/92 91 Nasal Cannula 2.0 08/13/16 20:00 81 08/13/16 19:49 95 Nasal Cannula 2.0 28 08/13/16 19:49 Nasal Cannula 2.0 28 Intake and Output 08/13/16 08/14/16 19:00 07:00 Intake Total 120 ml 300 ml Balance 120 ml 300 ml Intake Oral 120 ml 300 ml # Voids 2 1 General Appearance: WD/WN HEENT: normocephalic, anicteric Respiratory/Chest: crackles/rales Cardiovascular: normal peripheral pulses, normal rate Abdomen: normal bowel sounds, soft, non tender Genitourinary: normal external genitalia Extremities: no cyanosis Microbiology Date/Time Source Procedure Growth Status 08/11/16 21:10 Blood Blood Culture - Final Escherichia Coli Complete 08/11/16 20:47 Blood Blood Culture - Final Escherichia Coli Complete 08/12/16 17:00 Sputum Gram Stain - Final Resulted 08/12/16 17:00 Sputum Sputum Culture - Preliminary NORMAL UPPER RESPIRATORY [place]WRENCE AT 24 ... Resulted 08/11/16 21:10 Urine,Clean Catch Urine Culture - Final Escherichia Coli Complete Laboratory Tests 08/14/16 07:30: White Blood Count 7.0, Red Blood Count 4.63L, Hemoglobin 13.2L, Hematocrit 41.1L , Mean Corpuscular Volume 89, Mean Corpuscular Hemoglobin 28.5, Mean Corpuscular Hemoglobin Concent 32.0, Red Cell Distribution Width 14.5, Platelet Count 225, Mean Platelet Volume 7.3, Neutrophils (%) (Auto) , Lymphocytes (%) ( Auto) , Monocytes (%) (Auto) , Eosinophils (%) (Auto) , Basophils (%) (Auto) , Differential Total Cells Counted 100, Neutrophils % (Manual) 68, Lymphocytes % ( Manual) 22, Monocytes % (Manual) 9, Eosinophils % (Manual) 1, Basophils % ( Manual) 0, Band Neutrophils 0, Platelet Estimate Adequate, Platelet Morphology Normal, Red Blood Cell Morphology Normal, Sodium Level 135, Potassium Level 3.7 , Chloride Level 95L, Carbon Dioxide Level 25, Anion Gap 15, Blood Urea Nitrogen 12, Creatinine 1.0, Estimat Glomerular Filtration Rate , Glucose Level 97, Calcium Level 9.0, Total Bilirubin 0.3, Aspartate Amino Transf (AST/SGOT) 41H, Alanine Aminotransferase (ALT/SGPT) 42H, Alkaline Phosphatase 108, Total Protein 7.4, Albumin 3.6, Globulin 3.8, Albumin/Globulin Ratio 0.9L Current Medications Medications (Trade) Dose Ordered Sig/Barber Route PRN Reason Start Time Stop Time Status Last Admin Dose Admin Acetaminophen (Tylenol) 650 mg Q4H PRN ORAL fever 08/14/16 07:00 09/13/16 06:59 Albuterol/ Ipratropium (DuoNeb 0.5-3(2.5)mg/3ml) 3 ml Q4HR PRN HHN Shortness of Breath 08/14/16 09:00 08/19/16 08:59 Dextrose (Dextrose 50%) STAT PRN IV Hypoglycemia 08/15/16 03:00 09/14/16 02:59 Levofloxacin (Levaquin) 500 mg DAILY ORAL 08/14/16 09:00 08/19/16 08:59 08/14/16 08:13 Ranitidine HCl (Zantac) 150 mg BEDTIME ORAL 08/14/16 21:00 09/13/16 20:59 Rivaroxaban (Xarelto) 20 mg DAILY ORAL 08/14/16 09:00 09/13/16 08:59 08/14/16 08:13 BAYRON HADDAD Aug 14, 2016 19:28
[2016-08-14 20:00] VITALS: BP 155/103
[2016-08-15] VITALS: BP 140/93
[2016-08-15 04:00] VITALS: BP 127/73
[2016-08-15 07:04] LABS: MEAN CORPUSCULAR HEMOGLOBIN 29.2 PG (27.0-31.0); MEAN CORPUSCULAR HGB CONC 32.8 G/DL (32.0-36.0); MEAN CORPUSCULAR VOLUME 89 FL (80-99); MEAN PLATELET VOLUME 7.1 FL (6.5-10.1); PLATELET COUNT 205 K/UL (150-450); RED BLOOD COUNT 4.22 M/UL (4.70-6.10); RED CELL DISTRIBUTION WIDTH 14.2 % (11.6-14.8); WHITE BLOOD COUNT 6.8 K/UL (4.8-10.8)
[2016-08-15 07:38] LABS: ALANINE AMINOTRANSFERASE 32 U/L (3-41); ANION GAP 15 (5-15); ASPARTATE AMINO TRANSFERASE 27 U/L (5-40); CALCIUM 8.8 mg/dL (8.6-10.2); CARBON DIOXIDE 25 mEQ/L (20-30); CHLORIDE 99 mEQ/L (98-107); HEMOLYSIS 0; POTASSIUM 3.7 mEQ/L (3.4-4.9); SODIUM 139 mEQ/L (135-145); TOTAL PROTEIN 6.5 g/dL (6.6-8.7)
[2016-08-15 08:00] VITALS: BP 148/107
[2016-08-15] MEDS: Levofloxacin 500mg tab ORAL SCH (08:01)
[2016-08-15] MEDS: Xarelto 10mg tab ORAL SCH (08:01)
[2016-08-15 09:37] LABS: BAND NEUTROPHILS % (MANUAL) 0 % (0-8); BASOPHILS % (MANUAL) 0 % (0-2); EOSINOPHILS % (MANUAL) 0 % (0-3); HYPOCHROMASIA 1+; LYMPHOCYTES % (MANUAL) 35 % (20-45); NEUTROPHILS % (MANUAL) 47 % (45-75); PLATELET ESTIMATE ADEQUATE; PLATELET MORPHOLOGY NORMAL; TOTAL CELLS COUNTED 100
--- NOTE | 2016-08-15 10:09 | General Progress Note ---
Assessment/Plan Status: stable Assessment/Plan 1. Sepsis. 2. Community-acquired pneumonia. 3. Hypoxemic respiratory failure, stable. 4. Anemia. 5. Urinary tract infection, Gram negative 6. Gram Negative bactremia,likely urinary source Plan: Pulmonary, notes reviewed iron panel PSA abdominal us ordered ID consulted, continue with current antibiotic Subjective ROS Limited/Unobtainable: No Constitutional: Reports: no symptoms HEENT: Reports: no symptoms Cardiovascular: Reports: no symptoms Respiratory: Reports: no symptoms Allergies: Coded Allergies: PENICILLINS (Unverified Allergy, Unknown, 08/12/16) Uncoded Allergies: PENICILLIN (Allergy, Unknown, 08/11/16) Objective Last 24 Hour Vital Signs Date Time Temp Pulse Resp B/P Pulse Ox O2 Delivery O2 Flow Rate FiO2 08/15/16 08:00 97.5 80 22 148/107 92 Room Air 08/15/16 04:00 98.2 78 19 127/73 91 08/15/16 00:00 98.1 74 20 140/93 90 Room Air 08/14/16 20:00 97.9 98 20 155/103 Room Air 08/14/16 19:30 Room Air 21 08/14/16 19:30 93 Room Air 21 08/14/16 16:21 98.1 96 20 136/89 97 Room Air 08/14/16 12:45 97.9 79 20 148/99 97 Room Air Intake and Output 08/14/16 08/15/16 19:00 07:00 Intake Total 250 ml Balance 250 ml Intake Oral 250 ml # Voids 1 2 Laboratory Tests 08/15/16 05:05: White Blood Count 6.8, Red Blood Count 4.22L, Hemoglobin 12.3L, Hematocrit 37.5L , Mean Corpuscular Volume 89, Mean Corpuscular Hemoglobin 29.2, Mean Corpuscular Hemoglobin Concent 32.8, Red Cell Distribution Width 14.2, Platelet Count 205, Mean Platelet Volume 7.1, Neutrophils (%) (Auto) , Lymphocytes (%) ( Auto) , Monocytes (%) (Auto) , Eosinophils (%) (Auto) , Basophils (%) (Auto) , Differential Total Cells Counted 100, Neutrophils % (Manual) 47, Lymphocytes % ( Manual) 35, Monocytes % (Manual) 18H, Eosinophils % (Manual) 0, Basophils % ( Manual) 0, Band Neutrophils 0, Platelet Estimate Adequate, Platelet Morphology Normal, Hypochromasia 1+, Sodium Level 139, Potassium Level 3.7, Chloride Level 99, Carbon Dioxide Level 25, Anion Gap 15, Blood Urea Nitrogen 13, Creatinine 1.0, Estimat Glomerular Filtration Rate , Glucose Level 105, Calcium Level 8.8, Total Bilirubin 0.2, Aspartate Amino Transf (AST/SGOT) 27, Alanine Aminotransferase (ALT/SGPT) 32, Alkaline Phosphatase 90, Total Protein 6.5L, Albumin 3.4L, Globulin 3.1, Albumin/Globulin Ratio 1.0 Height (Feet): 6 Height (Inches): 0.00 Weight (Pounds): 160 General Appearance: no apparent distress EENT: PERRL/EOMI Neck: supple Cardiovascular: normal rate Respiratory/Chest: normal breath sounds Abdomen: soft Extremities: non-tender 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
[2016-08-15 12:00] VITALS: BP 147/101
[2016-08-15 16:02] VITALS: BP 133/95
--- NOTE | 2016-08-15 17:45 | Consultation ---
Consult Note Consult Note ID # [id number] WILDER PINEDA M.D. Aug 15, 2016 17:45
[2016-08-15 20:00] VITALS: BP 132/92
--- NOTE | 2016-08-15 21:55 | Pulmonology Progress Note ---
Assessment/Plan Problems: (1) Gram-negative bacteremia (2) Hypoxia (3) RLL pneumonia (4) UTI (urinary tract infection) (5) COPD (chronic obstructive pulmonary disease) Assessment/Plan IV antibiotics check sensitiy of GNR, pansensitive respiratory treatment check sputum ID consult appreciated psa elevated, CT of pelvis and abdomen Subjective ROS Limited/Unobtainable: No Interval Events: feeling better Allergies: Coded Allergies: PENICILLINS (Unverified Allergy, Unknown, 08/12/16) Uncoded Allergies: PENICILLIN (Allergy, Unknown, 08/11/16) Objective Last 24 Hour Vital Signs Date Time Temp Pulse Resp B/P Pulse Ox O2 Delivery O2 Flow Rate FiO2 08/15/16 20:00 98.1 86 20 132/92 90 Room Air 08/15/16 19:30 92 Room Air 21 08/15/16 19:30 Room Air 08/15/16 16:02 97.7 80 20 133/95 94 Room Air 08/15/16 12:00 97.4 96 16 147/101 96 Room Air 08/15/16 08:00 Room Air 08/15/16 08:00 97.5 80 22 148/107 92 Room Air 08/15/16 08:00 94 Room Air 08/15/16 04:00 98.2 78 19 127/73 91 08/15/16 00:00 98.1 74 20 140/93 90 Room Air Intake and Output 08/14/16 08/15/16 19:00 07:00 Intake Total 250 ml Balance 250 ml Intake Oral 250 ml # Voids 1 2 General Appearance: WD/WN HEENT: normocephalic, atraumatic Respiratory/Chest: chest wall non-tender, lungs clear Cardiovascular: normal peripheral pulses Abdomen: normal bowel sounds Genitourinary: normal external genitalia Laboratory Tests 08/15/16 05:05: White Blood Count 6.8, Red Blood Count 4.22L, Hemoglobin 12.3L, Hematocrit 37.5L , Mean Corpuscular Volume 89, Mean Corpuscular Hemoglobin 29.2, Mean Corpuscular Hemoglobin Concent 32.8, Red Cell Distribution Width 14.2, Platelet Count 205, Mean Platelet Volume 7.1, Neutrophils (%) (Auto) , Lymphocytes (%) ( Auto) , Monocytes (%) (Auto) , Eosinophils (%) (Auto) , Basophils (%) (Auto) , Differential Total Cells Counted 100, Neutrophils % (Manual) 47, Lymphocytes % ( Manual) 35, Monocytes % (Manual) 18H, Eosinophils % (Manual) 0, Basophils % ( Manual) 0, Band Neutrophils 0, Platelet Estimate Adequate, Platelet Morphology Normal, Hypochromasia 1+, Sodium Level 139, Potassium Level 3.7, Chloride Level 99, Carbon Dioxide Level 25, Anion Gap 15, Blood Urea Nitrogen 13, Creatinine 1.0, Estimat Glomerular Filtration Rate , Glucose Level 105, Calcium Level 8.8, Iron Level 38L, Total Iron Binding Capacity 242L, Percent Iron Saturation 16, Unsaturated Iron Binding 204, Total Bilirubin 0.2, Aspartate Amino Transf (AST/ SGOT) 27, Alanine Aminotransferase (ALT/SGPT) 32, Alkaline Phosphatase 90, Total Protein 6.5L, Albumin 3.4L, Globulin 3.1, Albumin/Globulin Ratio 1.0, Prostate Specific Antigen 12.0H Current Medications Medications (Trade) Dose Ordered Sig/Barber Route PRN Reason Start Time Stop Time Status Last Admin Dose Admin Acetaminophen (Tylenol) 650 mg Q4H PRN ORAL fever 08/14/16 07:00 09/13/16 06:59 Albuterol/ Ipratropium (DuoNeb 0.5-3(2.5)mg/3ml) 3 ml Q4HR PRN HHN Shortness of Breath 08/14/16 09:00 08/19/16 08:59 Dextrose (Dextrose 50%) STAT PRN IV Hypoglycemia 08/15/16 03:00 09/14/16 02:59 Levofloxacin (Levaquin) 500 mg DAILY ORAL 08/14/16 09:00 08/19/16 08:59 08/15/16 08:01 Ranitidine HCl (Zantac) 150 mg BEDTIME ORAL 08/14/16 21:00 09/13/16 20:59 08/15/16 20:43 Rivaroxaban (Xarelto) 20 mg DAILY ORAL 08/14/16 09:00 09/13/16 08:59 08/15/16 08:01 BAYRON HADDAD Aug 15, 2016 21:55
[2016-08-16] VITALS: BP 129/78
--- NOTE | 2016-08-16 01:28 | Consultation ---
DATE OF CONSULTATION: INFECTIOUS DISEASE CONSULTATION CONSULTING PHYSICIAN: Antonio Olson M.D. REASON FOR CONSULTATION: Evaluation of patient for UTI, sepsis, bacteremia, and antibiotic management. HISTORY OF PRESENT ILLNESS: This is a 76-year-old male with multiple medical problems, was admitted to this medical facility due to general weakness and dysuria. The patient was found to have both urine and blood cultures for E. coli. The patient also had low-grade fever. Overall, the patient is feeling better and the patient's consultation requested for further evaluation of the patient's antibiotic management. PAST MEDICAL HISTORY: History of anemia, history of DVT in the past. MEDICATIONS: Levaquin. ALLERGIES: Penicillin. SOCIAL HISTORY: He has smoked in the past. FAMILY HISTORY: Noncontributory. PHYSICAL EXAMINATION: VITAL SIGNS: Temperature 97.1 degrees, blood pressure 133/95, pulse 20, and respiratory rate 18. HEENT: Mild pale conjunctivae. No icterus. No thrush. NECK: No lymphadenopathy. CHEST: Coarse breathing sounds. HEART: S1 and S2. ABDOMEN: Soft and nontender. No flank tenderness. EXTREMITIES: No cyanosis. NEUROLOGIC: Awake. LABORATORY DATA: WBC 6.8, hemoglobin 12.3, platelets 205,000. UA shows 15 to 20 white blood cells and 5 to 10 red blood cells. BUN 13 and creatinine 0.1. ALT, AST, and alkaline phosphatase are unremarkable. Blood culture, ernandez susceptible E. coli. Urine culture, ernandez susceptible E. coli. ASSESSMENT: The patient is a 76-year-old male with multiple medical problems who was admitted to this medical center, was found to have Escherichia coli bacteremia and urinary tract infection. The patient would benefit from total 2 weeks of antibiotics. PLAN: 1. The patient is on Levaquin day #4/, upon discharge, we changed to oral antibiotics to complete in 2 weeks. 2. Monitor CBC. 3. Monitor BMP. 4. The patient's clinical course based on above and will do further recommendation. Thank you, Dr. Olson, for allowing me to participate in the care of this patient. I will follow the patient with you during this hospitalization. Shawn Ding M.D. DR: Concepcion JOB#: [id number] CC:
[2016-08-16 04:13] VITALS: BP 122/80
[2016-08-16 07:17] LABS: BASOPHILS % (AUTO) 1.3 % (0.0-2.0); EOSINOPHILS % (AUTO) 2.5 % (0.0-3.0); LYMPHOCYTES % (AUTO) 30.5 % (20.0-45.0); MEAN CORPUSCULAR HEMOGLOBIN 28.3 PG (27.0-31.0); MEAN CORPUSCULAR HGB CONC 31.7 G/DL (32.0-36.0); MEAN CORPUSCULAR VOLUME 89 FL (80-99); MEAN PLATELET VOLUME 7.1 FL (6.5-10.1); MONOCYTES % (AUTO) 17.2 % (1.0-10.0); NEUTROPHILS % (AUTO) 48.5 % (45.0-75.0); PLATELET COUNT 250 K/UL (150-450); RED BLOOD COUNT 4.59 M/UL (4.70-6.10); RED CELL DISTRIBUTION WIDTH 14.2 % (11.6-14.8); WHITE BLOOD COUNT 6.6 K/UL (4.8-10.8)
[2016-08-16 07:57] LABS: ALANINE AMINOTRANSFERASE 30 U/L (3-41); ANION GAP 15 (5-15); ASPARTATE AMINO TRANSFERASE 21 U/L (5-40); CALCIUM 9.1 mg/dL (8.6-10.2); CARBON DIOXIDE 25 mEQ/L (20-30); CHLORIDE 100 mEQ/L (98-107); HEMOLYSIS 1; POTASSIUM 3.9 mEQ/L (3.4-4.9); SODIUM 140 mEQ/L (135-145); TOTAL PROTEIN 6.8 g/dL (6.6-8.7)
[2016-08-16] MEDS: Xarelto 10mg tab ORAL SCH (08:07)
[2016-08-16] MEDS: Levofloxacin 500mg tab ORAL SCH (08:08)
[2016-08-16 08:45] VITALS: BP 145/89
[2016-08-16] MEDS ORDERED: LEVAQUIN500 MG ORAL (08:56)
--- NOTE | 2016-08-16 10:42 | Infectious Diseases Prog Note ---
Assessment/Plan Assessment/Plan A: This is a 76-year-old male with UTI E coli Sepsis, Bacteremia : EColi Anemia History of DVT PLAN: cont on Levaquin day # , upon discharge, we changed to oral antibiotics to complete in 2 weeks Monitor CBC. Monitor BMP. ok from ID standpoint to DC w oral AB Rx Subjective Constitutional: Denies: anorexia, chills, drenching sweats, fatigue, fever, no symptoms, other Allergies: Coded Allergies: PENICILLINS (Unverified Allergy, Unknown, 08/12/16) Uncoded Allergies: PENICILLIN (Allergy, Unknown, 08/11/16) Objective Vital Signs Last 24 Hour Vital Signs Date Time Temp Pulse Resp B/P Pulse Ox O2 Delivery O2 Flow Rate FiO2 08/16/16 08:45 97.0 89 20 145/89 95 Room Air 08/16/16 04:13 98.1 62 18 122/80 92 Room Air 08/16/16 00:00 98.1 74 19 129/78 90 Room Air 08/15/16 20:00 98.1 86 20 132/92 90 Room Air 08/15/16 19:30 92 Room Air 21 08/15/16 19:30 Room Air 21 08/15/16 16:02 97.7 80 20 133/95 94 Room Air 08/15/16 12:00 97.4 96 16 147/101 96 Room Air Height (Feet): 6 Height (Inches): 0.00 Weight (Pounds): 160 HEENT: normocephalic Respiratory/Chest: normal breath sounds Cardiovascular: no gallop/murmur Abdomen: no organomegaly Laboratory Tests Test 08/16/16 06:00 White Blood Count 6.6 K/UL (4.8-10.8) Red Blood Count 4.59 M/UL (4.70-6.10) L Hemoglobin 13.0 G/DL (14.2-18.0) L Hematocrit 41.0 % (42.0-52.0) L Mean Corpuscular Volume 89 FL (80-99) Mean Corpuscular Hemoglobin 28.3 PG (27.0-31.0) Mean Corpuscular Hemoglobin Concent 31.7 G/DL (32.0-36.0) L Red Cell Distribution Width 14.2 % (11.6-14.8) Platelet Count 250 K/UL (150-450) Mean Platelet Volume 7.1 FL (6.5-10.1) Neutrophils (%) (Auto) 48.5 % (45.0-75.0) Lymphocytes (%) (Auto) 30.5 % (20.0-45.0) Monocytes (%) (Auto) 17.2 % (1.0-10.0) H Eosinophils (%) (Auto) 2.5 % (0.0-3.0) Basophils (%) (Auto) 1.3 % (0.0-2.0) Sodium Level 140 mEQ/L (135-145) Potassium Level 3.9 mEQ/L (3.4-4.9) Chloride Level 100 mEQ/L (98-107) Carbon Dioxide Level 25 mEQ/L (20-30) Anion Gap 15 (5-15) Blood Urea Nitrogen 13 mg/dL (7-23) Creatinine 1.0 mg/dL (0.7-1.2) Estimat Glomerular Filtration Rate mL/min (>60) Glucose Level 99 mg/dL (74-106) Calcium Level 9.1 mg/dL (8.6-10.2) Total Bilirubin 0.2 mg/dL (0.0-1.2) Aspartate Amino Transf (AST/SGOT) 21 U/L (5-40) Alanine Aminotransferase (ALT/SGPT) 30 U/L (3-41) Alkaline Phosphatase 83 U/L (40-129) Total Protein 6.8 g/dL (6.6-8.7) Albumin 3.5 g/dL (3.5-5.2) Globulin 3.3 g/dL Albumin/Globulin Ratio 1.0 (1.0-2.7) Current Medications Medications (Trade) Dose Ordered Sig/Barber Route PRN Reason Start Time Stop Time Status Last Admin Dose Admin Acetaminophen (Tylenol) 650 mg Q4H PRN ORAL fever 08/14/16 07:00 09/13/16 06:59 Albuterol/ Ipratropium (DuoNeb 0.5-3(2.5)mg/3ml) 3 ml Q4HR PRN HHN Shortness of Breath 08/14/16 09:00 08/19/16 08:59 Dextrose (Dextrose 50%) STAT PRN IV Hypoglycemia 08/15/16 03:00 5/19/17 02:59 Levofloxacin (Levaquin) 500 mg DAILY ORAL 08/14/16 09:00 08/19/16 08:59 08/16/16 08:08 Ranitidine HCl (Zantac) 150 mg BEDTIME ORAL 08/14/16 21:00 09/13/16 20:59 08/15/16 20:43 Rivaroxaban (Xarelto) 20 mg DAILY ORAL 08/14/16 09:00 09/13/16 08:59 08/16/16 08:07 WILDER PINEDA M.D. Aug 16, 2016 10:42
[2016-08-16 12:42] VITALS: BP 169/97
--- NOTE | 2016-08-16 14:58 | Diagnostic Imaging Report ---
Indications: Abdominal mass, elevated serum PSA level Technique: Continuous helical CT imaging of the abdomen and pelvis was performed with automatic exposure control following administration of oral and intravenous nonionic iodine contrast, on a Siemens sensation [address] scanner. Axial, coronal, and sagittal images were reconstructed at 5 mm slice thickness. CTDI volume(s): 18 mGy Total DLP: 840 mGy-cm Findings: Comparison: None Oral contrast has passed throughout the gastrointestinal tract to the level of distal transverse colon. Colon and rectum distal to this unopacified, limiting evaluation. Entire tract nondistended. Small hiatal hernia suggested. Appendix not identified. Multiple colonic diverticula. No obvious mural thickening, adjacent stranding, associated extraluminal gas or fluid collections. Small nodular calcifications in the spleen. Apparent mild thickening of urinary bladder wall. Prominent prostate gland, 5.7 x 5 x 6.3 cm, focally calcified, indents the floor of the urinary bladder. Adjacent pelvic veins prominent bilaterally. Prominent arterial mural calcifications. Proximal abdominal aorta measures 33 mm in diameter. Infrarenal abdominal aorta demonstrates fusiform aneurysmal dilation measuring up to 43 mm in diameter. This demonstrates associated short segment dissection beginning at the level of L3-4 and extending to the level of the right common iliac artery origin. Both false and true channels are patent and well-opacified. Both appear to communicate with the right common iliac artery; only the true channel appears to communicate with the left common iliac artery. Right common iliac artery is ectatic proximally, 20 mm diameter. It demonstrates fusiform aneurysmal dilation distally, 31 mm diameter. Left common iliac artery is diffusely ectatic, maximum diameter 21 mm. Both external iliac and left common femoral arteries are patent and normal in caliber. Right common femoral artery is patent and diffusely ectatic, maximum diameter 15 mm. Overlying well-healed surgical scar is surgical clips. Liver, gallbladder, pancreas, adrenal glands, kidneys, unopacified ureters, seminal vesicles, retroperitoneum, mesentery, remainder visualized pelvic anatomy unremarkable. Irregular pleural-based linear densities increased interstitial markings in both lung bases, left greater than right, with suggestion of focal honeycombing in left lung base. Disc space narrowing with marginal osteophyte formation lumbar, lower thoracic spine. No focal skeletal lesions are identified. IMPRESSION: Enlarged, heterogeneous, focally calcified prostate, approximate volume 90 cc. 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 Open versus endovascular repair should be considered for iliac artery aneurysms greater than 3 cm. Ectatic right common femoral artery, 1.5 cm, with evidence of previous surgical repair Small hiatal hernia Colonic diverticulosis Splenic granulomatous disease Nik hepatis/peripancreatic calcifications most likely also granulomatous Apparent mild thickening of urinary bladder wall--underdistention versus hypertrophy versus cystitis. Pulmonary bibasal subsegmental atelectasis, superimposed nonspecific interstitial disease/possible fibrosis Degenerative spondylosis
--- NOTE | 2016-08-16 16:38 | Consultation ---
DATE OF CONSULTATION: 08/11/2016 INTERNAL MEDICINE CONSULTATION CONSULTING PHYSICIAN: Augustin Arango M.D. HISTORY OF PRESENT ILLNESS: This is a 76-year-old man who was seen in the emergency room on 08/11/2016 with shortness of breath. The patient states he was having chills and rigors and felt he could not breathe. He was diaphoretic. He was placed on a non-rebreather mask and gradually, saturations improved. The patient states he is also having lower extremity edema. PAST MEDICAL HISTORY: Notable for a history of previous DVT. He is presently on Xarelto. SOCIAL HISTORY: The patient has been a smoker for many years, but has quit smoking recently. ALLERGIES: Penicillin. REVIEW OF SYSTEMS: Denies any headaches, hematemesis, melena, or hematochezia. PHYSICAL EXAMINATION: GENERAL: This is a 76-year-old male. VITAL SIGNS: Blood pressure at this time is 120/82, heart rate is 64, respiratory rate is 18, afebrile, and oxygen saturation 92% on room air. HEENT: Unremarkable. CHEST: Clear breath sounds bilaterally. ABDOMEN: Soft LABORATORY DATA: Lab testing shows normal CBC and BMP. Urine cultures showed E. coli. The patient has elevated PSA. IMPRESSION: 1. History of deep venous thrombosis, on Xarelto. 2. Urinary tract infection, on Levaquin. 3. Elevated PSA. DISCUSSION: Continue present medications and care. Anticipate discharge home later today on oral antibiotics. Outpatient followup. Augustin Arango M.D. DR: DEVYN JOB#: [id number] CC:
[2016-08-16 16:44] VITALS: BP 150/100
--- NOTE | 2016-08-17 08:45 | Discharge Summary ---
Discharge Summary Hospital Course Date of Admission Aug 11, 2016 at 23:26 Date of Discharge Aug 16, 2016 at 18:46 Admitting Diagnosis hypoxia HPI Zeke Lackey is a 76 year old male who was admitted on Aug 11, 2016 at 23:26 for Hypoxia Hospital Course [id number] Discharge Discharge Disposition Patient was discharged to Home (01) Discharge Diagnoses: Sylwia Reed NP Aug 17, 2016 08:45
--- NOTE | 2016-08-18 00:08 | Discharge Summary 2 SIG ---
DATE OF ADMISSION: 08/11/2016 DATE OF DISCHARGE: 08/16/2016 CONSULTANTS: 1. Antonio Olson M.D. 2. Shawn Ding M.D. 3. Antonio Marquez M.D. BRIEF HOSPITAL COURSE: The patient is a 76-year-old male, who presented to ED with diffuse weakness and feeling cold with associated cough that has been ongoing for the last couple of days. On evaluation at ED, the patient initially had low-grade fever, tachycardia, and low oxygen level. Initial chest x-ray showed right basilar interstitial disease and urinalysis showed infection. The patient presented with severe dyspnea. Initial saturation of 74% and was diaphoretic and he was placed on 100% non-rebreather mask. Pulse oximetry gradually improved to 100. He had a history of DVT on the right lower extremity and has been taking Xarelto. He was given oxygen nebulizer therapy and was counseled on abstinence from smoking. Urine and blood culture showed growth of E. coli. Dr. Ding was consulted and he was given Levaquin. Abdominal ultrasound showed a right common iliac artery aneurysm. Negative for gallstones or dilated ducts. Abdominal and pelvic CT showed enlarged calcified prostate and findings of abdominal aortic aneurysm. [employer] [employer] was 12. Laboratories showed iron deficiency. The patient was discharged to home. Advised to continue Levaquin for seven more days and to continue Xarelto. FINAL DIAGNOSES: 1. Sepsis with bacteremia with Escherichia coli. 2. Urinary tract infection with Escherichia coli. 3. Anemia. 4. History of deep venous thrombosis, on Xarelto. 5. Elevated PSA. 6. Acute hypoxemic respiratory failure, resolved. 7. Community-acquired pneumonia. Augustin Arango M.D. I have been assigned to dictate discharge summary on this account and I was not involved in the patient's management. Sylwia Reed N.P. DR: BINU JOB#: [id number] CC:
== END 2016-08-16 18:46 | disposition home or self-care (01) | DRG 871 ==
LOC: EDBD 21:00 → EMR 21:23 → 2E 23:26 → EDBEDREQ 08-12 06:10 → 4W 08-14 06:38
DX: A41.51 Sepsis due to Escherichia coli [E. coli] (principal); J18.9 Pneumonia, unspecified organism; J96.01 Acute respiratory failure with hypoxia; N39.0 Urinary tract infection, site not specified; J44.0 Chronic obstructive pulmonary disease with (acute) lower respiratory infection; D64.9 Anemia, unspecified; Z79.01 Long term (current) use of anticoagulants; Z88.0 Allergy status to penicillin; F17.200 Nicotine dependence, unspecified, uncomplicated; Z86.718 Personal history of other venous thrombosis and embolism; R97.20 Elevated prostate specific antigen [PSA]; J20.9 Acute bronchitis, unspecified
CPT/HCPCS: 36415; 71010; 74177; 76700; 80053; 80061; 81003; 82550; 82962; 83036; 83540; 83550; 83605; 83880; 84153; 84484; 85007; 85025; 85610; 85730; 87040; 87070; 87086; 87181; 87205; 94644; 94664; 94760; J7620